=== PATIENT | male | born 1965 | race Caucasian/White ===

== ENCOUNTER 2021-10-20 23:27 | Emergency (ER) | payer MEDICAID ==
[~2021-10-20] VITALS: Ht 177.8 cm; Wt 99.8 kg
[2021-10-21 04:47] VITALS: BP 143/90
[2021-10-21] MEDS ORDERED: CEPH500C PO (05:01)
== END 2021-10-21 05:08 | disposition home or self-care (01) ==
LOC: ER 23:37
DX: L01.00 Impetigo, unspecified (principal); I10 Essential (primary) hypertension; F17.210 Nicotine dependence, cigarettes, uncomplicated; Z79.899 Other long term (current) drug therapy